=== PATIENT | female | born 1970 | race Caucasian/White ===

== ENCOUNTER 2019-11-02 21:42 | Emergency (ER) | payer BC ==
[~2019-11-02] VITALS: Ht 157.5 cm; Wt 59.9 kg
[2019-11-02 21:47] VITALS: Ht 157.5 cm; Wt 59.9 kg
[2019-11-02 23:22] VITALS: BP 122/87
== END 2019-11-02 23:22 | disposition home or self-care (01) ==
LOC: ED 21:42
DX: S46.221A Laceration of muscle, fascia and tendon of other parts of biceps, right arm, initial encounter (principal); W54.0XXA Bitten by dog, initial encounter; Y93.89 Activity, other specified; Y92.89 Other specified places as the place of occurrence of the external cause; Y99.8 Other external cause status
CPT/HCPCS: 90715; J2001; Q0092

== ENCOUNTER 2019-11-14 11:53 | Emergency (ER) | payer BC ==
[~2019-11-14] VITALS: Ht 157.5 cm; Wt 59.0 kg
[2019-11-14 12:06] VITALS: Ht 157.5 cm; Wt 59.0 kg
[2019-11-14 12:43] VITALS: BP 110/78
== END 2019-11-14 12:43 | disposition home or self-care (01) ==
LOC: ED 11:53
DX: S46.221D Laceration of muscle, fascia and tendon of other parts of biceps, right arm, subsequent encounter (principal); Z90.710 Acquired absence of both cervix and uterus; X58.XXXD Exposure to other specified factors, subsequent encounter